=== PATIENT | male | born 1980 | race Caucasian/White ===

== ENCOUNTER 2016-11-30 16:16 | Emergency (ER) | payer OTHER ==
[2016-11-30] MEDS ORDERED: PROPARACAINE 0.5% 15 ML OPHT DROP ONE (16:23)
[2016-11-30] MEDS ORDERED: FLUORESCEIN SODIUM 1 MG STRIP OP ONE (16:23)
--- NOTE | 2016-11-30 16:23 | EDPHY ---
H & P Stated Complaint: TREE BRANCH VS R EYE HPI/ROS: HPI CHIEF COMPLAINT: Trauma to right eye HISTORY OF PRESENT ILLNESS: This patient very pleasant 36-year-old male denies any significant medical history does not take any daily medications, presents emergency room after a tree branch that he was trimming struck him directly in the right eye. He immediately had pain. Currently tells me that he can see light out of his right eye but cannot make any shapes out. Decreased vision out of right eye, left eye normal. Has 10/10 right eye pain. Denies tetanus shot being up-to-date. Of note upon arrival he has been placed into ER room 10 I immediately saw him he has 100% hyphema present. There is possible open globe. 1627: This time I will update his tetanus shot and speak with Ophthalmology. 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 Exam Constitutional triage nursing summary reviewed, vital signs reviewed, awake/ alert. Eyes right eye exam: Irregular pupil, 100% hyphema, possible open globe. 1 proparacaine is applied to the right eye he does drip out of his eye with blood tinged proparacaine concerning for open globe. Irregular pupil. On reactive to light. Blood in anterior chamber. Left eye exam normal. Extraocular movement intact of the right eye, no proptosis. HENT normal inspection, atraumatic, moist mucus membranes, no epistaxis, neck supple/ no meningismus, no raccoon eyes. Respiratory clear to auscultation bilaterally, normal breath sounds, no respiratory distress, no wheezing. Cardiovascular rate normal, regular rhythm, no murmur, no edema, distal pulses normal. Gastrointestinal soft, non-tender, no rebound, no guarding, normal bowel sounds, no distension, no pulsatile mass. Genitourinary no CVA tenderness. Musculoskeletal no midline vertebral tenderness, full range of motion, no calf swelling, no tenderness of extremities, no meningismus, good pulses, neurovascularly intact. Skin pink, warm, & dry, no rash, skin atraumatic. Neurologic awake, alert and oriented x 3, AAOx3, moves all 4 extremities equally, motor intact, sensory intact, CN II-XII intact, normal cerebellar, normal vision, normal speech. Psychiatric normal mood/affect. Heme/Lymph/Immune no lymphadenopathy. Differential Diagnosis: Includes but is not limited to in a particular order, 100% hyphema, traumatic iritis, traumatic corneal abrasion, direct trauma to the eye leading to a open globe. Medical Decision Making: Plan for patient update tetanus shot, IV establishment blood work, IV pain control with morphine and Zofran. Will consult Ophthalmology immediately for possible open globe 100% hyphema. Re-evaluation: 1633: Spoke with Dr. Kennedy, with Ophthalmology on-call: Will come and see and evaluate the patient. Plan at this time is for tetanus update. IV pain control. IV nausea medicine. Emergent ophthalmology consult. 1721: I spoke with Dr. Kennedy with Opthalmology On-call: He did see and evaluate the patient in emergency room is patient has an open globe with a laceration right eye over the cornea just right of midline. Does recommend operative repair of this. However further discussion with him there is no operative capabilities here at [facility] as they do not have ophthalmology equipement in the operating room anymore. This is reported to me by Dr. Kennedy. Dr. Kennedy is willing to take care of this patient at [facility] to have operative fixation of this open globe. He is unable to do it in the outpatient surgical center this time as it is after 5:00 p.m.. He has privileges at [facility]. He is willing to see the patient at [facility] if accepted over at [facility]. Given that this is an isolated injury to the patient's globe does not meet trauma criteria, I feel that is appropriate for this patient's care to have his open globe injury repaired by the autocad technician saw him here in the emergency room that also has privileges at [facility]. Hopefully this patient be transferred from ER to ER to [facility] to then go to the operating room with the autocad technician saw him here for surgical fixation of his open globe. I did speak with Dr. Kennedy again he agrees to accept this patient [facility] to take to the OR to have his open globe repaired. I will speak with the ER at [facility] see if they can accept him ER to ER and then patient be taken to the operating room or directly to the OR. Spoke with Gio GUIDO, with Attending Dr. Laureano Little, with [facility] ER did accept the patient ER to ER to be transferred and then will be taken to the operating by Dr. Kennedy with Ophthalmology. 1746: This patient has been accepted at [facility] by Dr. Tinsley ER attending patient be transferred ER to ER and then will be taken to the operating room by Dr. Kennedy for open globe. Patient is fine with this plan. This is the best interest of this patient's care. And will lead to a definitive care of his open globe an operative fixation. Source: Patient - Personal History Current Tetanus Diphtheria and Acellular Pertussis (TDAP): Unsure - Medical/Surgical History Other PMH: DENIES - Social History Smoking Status: Current every day smoker Constitutional: Initial Vital Signs Heart Rate 99 11/30/16 16:19 Respiratory Rate 18 11/30/16 16:19 Blood Pressure 162/106 H 11/30/16 16:19 O2 Sat (%) 99 11/30/16 16:19 O2 Delivery Mode Room Air O2 (L/minute) 2 Allergies/Adverse Reactions: No Known Allergies Allergy (Unverified 11/30/16 16:19) Home Medications: Medication Instructions Recorded NK [No Known Home Meds] 11/30/16 Medical Decision Making - Data Points Laboratory Results: Laboratory Results 11/30/16 16:35 11/30/16 16:35 11/30/16 11/30/16 11/30/16 16:54 16:35 16:35 WBC 10.65 10^3/uL H 10^3/uL (3.80-9.50) RBC 5.03 10^6/uL 10^6/uL (4.40-6.38) Hgb 15.6 g/dL g/dL (13.7-17.5) Hct 43.3 % % (40.0-51.0) MCV 86.1 fL fL (81.5-99.8) MCH 31.0 pg pg (27.9-34.1) MCHC 36.0 g/dL g/dL (32.4-36.7) RDW 12.4 % % (11.5-15.2) Plt Count 322 10^3/uL 10^3/uL (150-400) MPV 10.1 fL fL (8.7-11.7) Neut % (Auto) 50.2 % % (39.3-74.2) Lymph % (Auto) 40.9 % % (15.0-45.0) [place] % (Auto) 6.8 % % (4.5-13.0) Eos % (Auto) 1.2 % % (0.6-7.6) Baso % (Auto) 0.7 % % (0.3-1.7) Nucleat RBC Rel Count 0.0 % % (0.0-0.2) Absolute Neuts (auto) 5.35 10^3/uL 10^3/uL (1.70-6.50) Absolute Lymphs (auto) 4.36 10^3/uL H 10^3/uL (1.00-3.00) Absolute Monos (auto) 0.72 10^3/uL 10^3/uL (0.30-0.80) Absolute Eos (auto) 0.13 10^3/uL 10^3/uL (0.03-0.40) Absolute Basos (auto) 0.07 10^3/uL 10^3/uL (0.02-0.10) Absolute Nucleated RBC 0.00 10^3/uL 10^3/uL (0-0.01) Immature Gran % 0.2 % % (0.0-1.1) Immature Gran # 0.02 10^3/uL 10^3/uL (0.00-0.10) PT 13.4 SEC SEC (12.0-15.0) INR 1.03 (0.83-1.16) APTT 24.1 SEC SEC (23.0-38.0) Sodium 141 mEq/L mEq/L (134-144) Potassium 3.4 mEq/L L mEq/L (3.5-5.2) Chloride 107 mEq/L mEq/L (97-110) Carbon Dioxide 21 mEq/l L mEq/l (22-31) Anion Gap 13 mEq/L mEq/L (8-16) BUN 15 mg/dL mg/dL (7-23) Creatinine 0.9 mg/dL mg/dL (0.7-1.3) Estimated GFR > 60 Glucose 105 mg/dL H mg/dL (70-100) Calcium 9.8 mg/dL mg/dL (8.5-10.4) Medications Given: Discontinued Medications Sodium Chloride (Ns) 500 mls @ 0 mls/hr IV ONCE ONE PRN Reason: Wide Open Stop: 11/30/16 16:40 Last Admin: 11/30/16 16:46 Dose: 500 mls Morphine Sulfate (Morphine) 6 mg IVP EDNOW ONE Stop: 11/30/16 16:40 Last Admin: 11/30/16 16:41 Dose: 6 mg Morphine Sulfate (Morphine) 6 mg IVP EDNOW ONE Stop: 11/30/16 17:38 Last Admin: 11/30/16 17:43 Dose: 6 mg Ondansetron HCl (Zofran) 4 mg IVP EDNOW ONE Stop: 11/30/16 16:40 Last Admin: 11/30/16 16:41 Dose: 4 mg Departure - Departure Disposition: Acute Care Hospital [facility] Clinical Impression: Eye trauma Injury of globe of eye Qualifiers: Encounter type: initial encounter Laterality: right Qualified Code(s): S05.91XA - Unspecified injury of right eye and orbit, initial encounter Condition: Fair Referrals: NONE *PRIMARY CARE P,. [Primary Care Provider] - As per Instructions
[2016-11-30] MEDS ORDERED: ONDANSETRON 4 MG/2 ML VIAL ONE (16:27)
[2016-11-30] MEDS ORDERED: ONDANSETRON 4 MG/2 ML VIAL IVP ONE (16:39)
[2016-11-30] MEDS ORDERED: NS 500 ML IV ONE (16:39)
[2016-11-30 16:47] LABS: % IMMATURE GRANULYOCYTES 0.2 % (0.0-1.1); ABSOLUTE IMMATURE GRANULOCYTES 0.02 10^3/uL (0.00-0.10); ADD DIFF? NO; ADD MORPH? NO; ADD SCAN? NO; ATYPICAL LYMPHOCYTE FLAG 10 (0-99); FRAGMENT RBC FLAG 0 (0-99); HEMATOCRIT 43.3 % (40.0-51.0); HEMOGLOBIN 15.6 g/dL (13.7-17.5); LEFT SHIFT FLG 0 (0-99); LIPEMIA HEMOLYSIS FLAG 90 (0-99); MEAN CELL VOLUME 86.1 fL (81.5-99.8); MEAN PLATELET VOLUME 10.1 fL (8.7-11.7); PLATELET CLUMPS FLAG 0 (0-99); PLATELET COUNT 322 10^3/uL (150-400); RED BLOOD CELL COUNT 5.03 10^6/uL (4.40-6.38); RED CELL DISTRIBUTION WIDTH 12.4 % (11.5-15.2)
[2016-11-30 16:56] LABS: ANION GAP 13 mEq/L (8-16); CALCIUM 9.8 mg/dL (8.5-10.4); CARBON DIOXIDE 21 mEq/l (22-31); CHLORIDE 107 mEq/L (97-110); CREATININE 0.9 mg/dL (0.7-1.3); GLOMERULAR FILTRATION RATE > 60; GLUCOSE 105 mg/dL (70-100); POTASSIUM 3.4 mEq/L (3.5-5.2); SODIUM 141 mEq/L (134-144)
[2016-11-30 17:11] LABS: INR 1.03 (0.83-1.16); PROTIME(PATIENT) 13.4 SEC (12.0-15.0)
[2016-11-30 17:12] LABS: APTT 24.1 SEC (23.0-38.0)
[2016-11-30 17:41] VITALS: O2SAT 94
[2016-11-30] MEDS ORDERED: HYDROmorphONE/DILAUDID 1 MG/ML SYR IVP ONE (18:13)
[2016-11-30] MEDS ORDERED: HYDROmorphONE/DILAUDID 1 MG/ML SYR ONE (18:14)
[2016-11-30 18:30] VITALS: BP 150/94; PULSE 84; RESP 16; TEMP 98.4
== END 2016-11-30 18:28 | disposition short-term general hospital (02) ==
DX: S05.91XA Unspecified injury of right eye and orbit, initial encounter (principal); F17.200 Nicotine dependence, unspecified, uncomplicated; W22.8XXA Striking against or struck by other objects, initial encounter; Y99.8 Other external cause status; Y93.89 Activity, other specified
CPT/HCPCS: 96374; J0690; J1170; J2405